=== PATIENT | male | born 2005 | race Caucasian/White ===

== ENCOUNTER 2023-07-24 15:11 | Emergency (ER) | payer SELFPAY ==
[~2023-07-24] VITALS: Ht 180.3 cm; Wt 77.3 kg
[2023-07-24 15:19] VITALS: TEMP 98.1
[2023-07-24] MEDS ORDERED: ZOFRAN ODT4 MG PO (16:04)
[2023-07-24 16:49] VITALS: BP 120/70; PULSE 58
== END 2023-07-24 16:51 | disposition home or self-care (01) ==
LOC: COL.ER 15:11
DX: K52.9 Noninfective gastroenteritis and colitis, unspecified (principal)
CPT/HCPCS: C9113; J2405